=== PATIENT | female | born 1980 | race Caucasian/White ===

== ENCOUNTER → 2017-12-21 12:53 | Outpatient (CLI) | payer OTHER, SELFPAY ==
--- NOTE | 2017-12-21 13:00 | VDLE_ITS ---
Reason For Study: LEG SWELLING RIGHT LEFT CFV is compressible, spontaneous, phasic, CFV is compressible, spontaneous, phasic, competent and demonstrates normal competent, and demonstrates normal augmentation. augmentation. FV is compressible, spontaneous, phasic, FV is compressible, spontaneous, phasic, competent and demonstrates normal competent and demonstrates normal augmentation. augmentation. POP V is compressible, spontaneous, phasic, POP V is compressible, spontaneous, phasic, competent and demonstrates normal competent and demonstrates normal augmentation. augmentation. T/P Trunk is compressible. T/P Trunk is compressible. PTV is compressible. PTV is compressible. RT PerV is compressible. LT PerV is compressible. GSV and SSV are occluded s/p EVLA. SFJ is competent Procedure GSV is INCOMPETENT with reflux greater Exam performed in department. than .5 sec and diameter of .34 x .33 cm SSV is INCOMPETENT with reflux greater than .5 sec and diameter of .18 x .18 cm. Interpretation Summary Deep veins of the lower extremities are bilaterally patent and compressible segmentally. There is no evidence of deep vein thrombosis on either side. Valvular competence appears intact within the proximal deep venous systems bilaterally. The right great saphenous vein and small saphenous vein are occluded, consistent with a prior endothermal ablation procedure. The left sapheno-femoral junction is competent. The left great saphenous vein is patent and incompetent. The left small saphenous vein is patent and incompetent. Ordering Physician: ANABELLA NESBITT Referring Physician: Anabella Nesbitt Performed By: Justine Granado RVT
--- NOTE | 2017-12-28 20:14 | LEAS ---
Arterial Study - Arterial Study Arterial Study: This is a 37-year-old female with a history of smoking. Suspecting the presence of peripheral arterial occlusive disease based upon clinical assessment, the patient was brought to the noninvasive vascular laboratory at this time for the purpose of bilateral noninvasive lower extremity arterial assessment. Doppler signal assessment was used to evaluate the pulses at ankle level bilaterally. The posterior tibial and dorsalis pedis pulses were triphasic bilaterally. Segmental limb pressures were obtained at ankle level bilaterally. The right ankle pressure, as determined by posterior tibial pulse, was measured at 123 mmHg. The right ankle pressure, as determined by dorsalis pedis pulse, was measured at 132 mmHg. The left ankle pressure, as determined by posterior tibial pulse, was measured at 136 mmHg. The left ankle pressure, as determined by dorsalis pedis pulse, was measured at 118 mmHg. Pulse-volume recordings were obtained bilaterally and segmentally. Waveform amplitudes appeared to be satisfactory at all levels bilaterally, but for the left digital level, which was slightly diminished. Resting ankle-brachial indices were calculated bilaterally. The resting right ankle-brachial index was calculated to be 1.12. The resting left ankle-brachial index was calculated to be 1.15. Impression: Based upon the findings of this resting noninvasive lower extremity arterial study, there is no evidence of significant atherosclerotic peripheral arterial occlusive disease in the lower extremities bilaterally. Triphasic waveforms were noted in ankle level bilaterally. Resting ankle-brachial indices were bilaterally normal. In summary, this represents a normal resting noninvasive lower extremity arterial study bilaterally.
--- NOTE | 2017-12-28 20:17 | LEAS_ITS ---
Arterial Study - Arterial Study Arterial Study: This is a 37-year-old female with a history of smoking. Suspecting the presence of peripheral arterial occlusive disease based upon clinical assessment , the patient was brought to the noninvasive vascular laboratory at this time for the purpose of bilateral noninvasive lower extremity arterial assessment. Doppler signal assessment was used to evaluate the pulses at ankle level bilaterally. The posterior tibial and dorsalis pedis pulses were triphasic bilaterally. Segmental limb pressures were obtained at ankle level bilaterally. The right ankle pressure, as determined by posterior tibial pulse, was measured at 123 mmHg. The right ankle pressure, as determined by dorsalis pedis pulse, was measured at 132 mmHg. The left ankle pressure, as determined by posterior tibial pulse, was measured at 136 mmHg. The left ankle pressure, as determined by dorsalis pedis pulse, was measured at 118 mmHg. Pulse-volume recordings were obtained bilaterally and segmentally. Waveform amplitudes appeared to be satisfactory at all levels bilaterally, but for the left digital level, which was slightly diminished. Resting ankle-brachial indices were calculated bilaterally. The resting right ankle-brachial index was calculated to be 1.12. The resting left ankle- brachial index was calculated to be 1.15. Impression: Based upon the findings of this resting noninvasive lower extremity arterial study, there is no evidence of significant atherosclerotic peripheral arterial occlusive disease in the lower extremities bilaterally. Triphasic waveforms were noted in ankle level bilaterally. Resting ankle-brachial indices were bilaterally normal. In summary, this represents a normal resting noninvasive lower extremity arterial study bilaterally.
== END ==
PROVIDERS: Family Provider Nurse Practitioner; PCP Nurse Practitioner; Visit Provider Nurse Practitioner
DX: I73.9 Peripheral vascular disease, unspecified (principal); R60.0 Localized edema
CPT/HCPCS: 93923; 93970

== ENCOUNTER → 2018-02-06 16:55 | Outpatient (CLI) | payer OTHER, SELFPAY ==
--- NOTE | 2018-02-06 17:12 | MRI_ITS ---
STUDY: MRI LUMBAR SPINE WITHOUT CONTRAST REASON FOR EXAM: Female, 37 years old. LOW BACK PAIN, c/o bilat leg pain and numbness, pain inj last week. TECHNIQUE: Standardized fat and water weighted pulse sequences were obtained in the sagittal and axial planes. COMPARISON: None FINDINGS: T12-L1: Normal endplates. Normal disc height, hydration and morphology. Normal bilateral facet joints. Normal central canal and bilateral lateral recesses. Normal bilateral intervertebral neural foramina. There is straightening of the normal lumbar lordosis. There is no substantial scoliosis. Normal conus medullaris that terminates at the L1 L1-2: Normal endplates. Normal disc height, hydration and morphology. Normal bilateral facet joints. Normal central canal and bilateral lateral recesses. Normal bilateral intervertebral neural foramina. L2-3: Normal endplates. Normal disc height, hydration and morphology. Normal bilateral facet joints. Normal central canal and bilateral lateral recesses. Normal bilateral intervertebral neural foramina. L3-4: There is minimal disc space narrowing and endplate spondylosis. There is minimal disc bulging without significant central canal or foraminal stenosis. L4-5: There is minimal disc space narrowing and endplate spondylosis. There is a minimal disc bulge with left foraminal annular fissure without significant central canal or foraminal stenosis. L5-S1: There is minimal disc space narrowing and endplate spondylosis. There is minimal disc bulging without significant central canal or foraminal stenosis. Normal visualized sacral ala. Normal visualized paraspinous soft tissue structures. MRI/Spine Lumbar (Routine) IMPRESSION: L4/L5: Annular fissure. No central canal or foraminal stenosis. Electronically Signed: Silverio Norman MD at 15:24 EDT Tel , Service support ,
== END ==
PROVIDERS: Family Provider Nurse Practitioner; PCP Nurse Practitioner; Visit Provider Anesthesiology Pain Medicine
DX: M54.9 Dorsalgia, unspecified (principal); M79.606 Pain in leg, unspecified
CPT/HCPCS: 72148

== ENCOUNTER → 2018-05-30 15:21 | Outpatient (CLI) | payer OTHER, SELFPAY ==
--- NOTE | 2018-05-30 13:21 | RAD_ITS ---
STUDY: X-RAY - LUMBAR SPINE REASON FOR EXAM: Female, 38 years old. Lower back pain. TECHNIQUE: 4 view(s) of the lumbar spine were obtained. COMPARISON: MRI of the lumbar spine, February 06, 2018. FINDINGS: Normal lumbar lordosis. There is no substantial scoliosis. There is a normal alignment of the vertebrae. There is no change in alignment with flexion or extension. Normal vertebral bodies and endplates. Normal disc space heights. There is no evidence of acute fracture or loss of vertebral axial height. The soft tissue structures are unremarkable. RAD/L/S Spine Min 4 Views IMPRESSION: Normal x-ray examination of the lumbar spine. There is no evidence of instability. Electronically Signed: Ashok Auguste DO at 18:19 EDT Tel [phone], Service support ,
== END ==
PROVIDERS: Family Provider Nurse Practitioner; PCP Nurse Practitioner; Visit Provider Orthopaedic Surgery
DX: M54.5 Low back pain (principal)
CPT/HCPCS: 72110

== ENCOUNTER → 2018-06-22 12:44 | Outpatient (CLI) | payer OTHER, SELFPAY | PROVIDERS: Family Provider Nurse Practitioner; PCP Nurse Practitioner; Visit Provider Orthopaedic Surgery | DX: R29.898 Other symptoms and signs involving the musculoskeletal system (principal) | CPT/HCPCS: 72141 ==

== ENCOUNTER → 2019-10-02 22:33 | Outpatient (CLI) | payer BC, SELFPAY ==
[2019-10-02 22:56] LABS: Absolute Lymphocyte Count 1.62 X10^3/uL (0.83-4.51); Absolute Neutrophil Count 3.5 X10^3/uL (2.0-7.7); Eosinophil# 0.14 X10^3/uL; Eosinophils% 2.4 % (0-5); Hematocrit 32.3 % (37-47); Hemoglobin 10.3 g/dL (12.0-15.0); Lymphocyte # 1.62 X10^3/ul (4.0); Lymphocyte % 28.2 % (19-41); Mean Corp Hgb Conc 31.9 g/dL (32-36); Mean Corpuscular Hgb 28.5 pg (27.0-32.0); Mean Corpuscular Volume 89.2 fL (81-99); Mean Platelet Vol. 11.7 fl (6.2-12.0); Monocyte# 0.52 X10^3/uL; Monocyte% 9.1 % (0-10); NRBC Flagged by Analyzer 0 % (0-5); Neutrophil # 3.45 X10^3/uL (2.7-7.7); Neutrophil % 60.1 % (47-70); Platelet Count 282 K/mm3 (150-450); RBC Distribution Width CV 14.3 % (11.6-14.6); RBC Distribution Width SD 46.5 fl (35.1-43.9); Red Blood Count 3.62 M/mm3 (4.2-5.4); White Blood Count 5.7 K/mm3 (4.4-11.0)
[2019-10-02 23:03] LABS: ALB/GLOB Ratio 1.5 RATIO (0.9-2.4); AST(SGOT) 19 U/L (15-37); Alanine Aminotransfer ALT/SGPT 34 U/L (13-56); Albumin, Serum 4.4 g/dL (3.2-5.0); Alkaline Phosphatase 62 U/L (45-117); Anion Gap 5 (5-15); BUN 13 mg/dL (7-18); BUN/Creat Ratio 18.1 RATIO (10-20); Calcium,Total 8.8 mg/dL (8.5-10.1); Chloride 106 mmol/L (98-107); Creatinine, Serum 0.72 mg/dL (0.55-1.02); EST Glomerular Filtration Rate 95 mL/min (>60); Est Glom Filt Rate - Afr Amer 115 mL/min (>60); Globulin 2.9 g/dL (2.2-4.2); Glucose 83 mg/dL (74-106); Potassium 3.9 mmol/L (3.5-5.1); Protein, Total 7.3 g/dL (6.4-8.2); Sodium Level 139 mmol/L (136-145)
== END ==
PROVIDERS: Family Provider Nurse Practitioner; PCP Nurse Practitioner; Referring Provider Nurse Practitioner; Visit Provider Nurse Practitioner
DX: R60.0 Localized edema (principal)
CPT/HCPCS: 80053; 85025

== ENCOUNTER → 2020-03-17 | Outpatient (CLI) | payer BC, SELFPAY ==
[2020-03-17 16:26] VITALS: BMI 20.8
[2020-03-17 21:59] LABS: Absolute Lymphocyte Count 1.62 X10^3/uL (0.83-4.51); Absolute Neutrophil Count 3.4 X10^3/uL (2.0-7.7); Eosinophil# 0.16 X10^3/uL; Eosinophils% 2.8 % (0-5); Hematocrit 30.4 % (37-47); Hemoglobin 9.4 g/dL (12.0-15.0); Lymphocyte # 1.62 X10^3/ul (4.0); Mean Corp Hgb Conc 30.9 g/dL (32-36); Mean Corpuscular Hgb 25.1 pg (27.0-32.0); Mean Corpuscular Volume 81.1 fL (81-99); Monocyte# 0.63 X10^3/uL; Monocyte% 10.9 % (0-10); NRBC Flagged by Analyzer 0 % (0-5); Neutrophil # 3.37 X10^3/uL (2.7-7.7); Neutrophil % 58.1 % (47-70); POSITIVE MORPHOLOGY YES; Platelet Count 275 K/mm3 (150-450); RBC Distribution Width CV 15.9 % (11.6-14.6); Red Blood Count 3.75 M/mm3 (4.2-5.4); White Blood Count 5.8 K/mm3 (4.4-11.0)
[2020-03-17 22:23] LABS: Differential Indicated SCAN CRITERIA MET
[2020-03-17 22:24] LABS: Platelet Estimate ADEQUATE (ADEQ)
[2020-03-17 22:25] LABS: Anisocytosis RARE; Hypochromasia 1+; Microcytosis RARE; Ovalocyte RARE; Red Cell Morphology N CHROM NORMAL (NORM C&C)
[2020-03-17 22:27] LABS: ALB/GLOB Ratio 1.4 RATIO (0.9-2.4); AST(SGOT) 19 U/L (15-37); Alanine Aminotransfer ALT/SGPT 27 U/L (13-56); Albumin, Serum 4.4 g/dL (3.2-5.0); Alkaline Phosphatase 64 U/L (45-117); Anion Gap 9 (5-15); BUN 13 mg/dL (7-18); BUN/Creat Ratio 16.8 RATIO (10-20); Calcium,Total 9.3 mg/dL (8.5-10.1); Chloride 101 mmol/L (98-107); Creatinine, Serum 0.78 mg/dL (0.55-1.02); EST Glomerular Filtration Rate 87 mL/min (>60); Est Glom Filt Rate - Afr Amer 105 mL/min (>60); Globulin 3.2 g/dL (2.2-4.2); Glucose 85 mg/dL (74-106); Potassium 3.2 mmol/L (3.5-5.1); Protein, Total 7.6 g/dL (6.4-8.2); Sodium Level 138 mmol/L (136-145)
== END | disposition home or self-care (01) ==
PROVIDERS: Visit Provider Nurse Practitioner
DX: E87.6 Hypokalemia (principal); D51.9 Vitamin B12 deficiency anemia, unspecified
CPT/HCPCS: 80053; 85025

== ENCOUNTER → 2020-04-17 | Outpatient (CLI) | payer BC, SELFPAY ==
[2020-03-17 16:26] VITALS: BMI 20.8
--- NOTE | 2020-04-17 17:05 | EMB_PTH ---
PATIENT: ALECIA VELA LOC: [facility] U#:[id number] AGE/SX: 40/F ROOM: RE04/17/[address]: Dr. Indio Cheng MD : 1980 BED: DIS: 04/17/2020 SPEC #: [id number] RECD: 04/17/20 17:25 STATUS: STEVE ROSENDA #: [id number] HARVEY: 04/17/20 17:[address]: Indio Cheng DEPT: SURGICAL PATHOLOGY RECD BY: Jessy Guzman Tissues: Endometrium, NOS Procedures: Surgery Specimen Level IV HEADER OPERATION: Endometrial biopsy PRE-OP DIAGNOSIS: N92.0 TISSUE SUBMITTED: Endometrial biopsy MICROSCOPIC DIAGNOSIS Endometrial biopsy: Secretory endometrium. SJ:lexa 04/21/20 MICROSCOPIC DESCRIPTION Slides are reviewed. GROSS DESCRIPTION Received in fixative is one container labeled with the patient's name and designated EM biopsy. The specimen consists of multiple irregular fragments of busby-pink soft tissue that in aggregate measure 3 x 2.5 x 0.3 cm. The specimen is totally submitted in one cassette. / SJ:rg 04/18/20 TC:4 CPT: 58612
[2020-04-23 05:20] LABS: HPV Reflexed? NOT INDICATED
== END | disposition home or self-care (01) ==
PROVIDERS: Referring Provider Obstetrics & Gynecology; Visit Provider Obstetrics & Gynecology
DX: Z12.4 Encounter for screening for malignant neoplasm of cervix (principal)
CPT/HCPCS: 88175; 88305; G0145

== ENCOUNTER 2020-04-25 09:37 | Day surgery (SDC) | payer BC, SELFPAY ==
[2020-03-17 16:26] VITALS: BMI 20.8
[2020-04-23 14:29] LABS: Hemoglobin 8.8 g/dL (12.0-15.0); Mean Corp Hgb Conc 30.3 g/dL (32-36); Mean Corpuscular Hgb 24.5 pg (27.0-32.0); Mean Corpuscular Volume 80.8 fL (81-99); Mean Platelet Vol. 11.3 fl (6.2-12.0); Platelet Count 336 K/mm3 (150-450); RBC Distribution Width CV 16.5 % (11.6-14.6); RBC Distribution Width SD 48.4 fl (35.1-43.9); Red Blood Count 3.59 M/mm3 (4.2-5.4); White Blood Count 6.4 K/mm3 (4.4-11.0)
[2020-04-23 14:53] LABS: Prothrombin Time (Protime)PT. 12.8 SECONDS (11.7-14.9)
[2020-04-23 14:54] LABS: Partial Thromboplast Time 32.4 Seconds (24.1-36.2)
[2020-04-23 15:49] LABS: Internal QC Validated? YES +Cl - CLEAR BKGD; Pregnancy, Serum, hCG Quali. NEGATIVE Negative
[2020-04-25] VITALS (10 sets, daily range): BP systolic 107–126; BP diastolic 68–84; PULSE 64–73; RESP 15–16; TEMP 36.6–37.1; O2SAT 96–100; BMI 20.2
--- NOTE | 2020-04-25 08:20 | HP.PCM_ITS ---
History and Physical Date of Admission: 04/25/20 Surgical History and Physical Sierra Gonzales, a 40 year old female 3 0 0 1 3, presents for HTA, Hysteroscopy and D and C on April 25, 2020 at 11:30. -- Blood Loss Anemia; Dysmenorrhea; Menorrhagia -- Sierra is a 39 yr old here as a new pt here for evaluation Dysmenorrhea, Menorrhagia. Heavy menses which began years ago. Sierra claims it started gradually It occurs with menses. It is located in the vagina. Sierra characterizes the quality annoying and no relief in sight. Severity is severe and worsening; Severity is intolerable and worsening; Associated signs and symptoms are cramping. Additional comments are: hgb 9.5 a few weeks ago after a very heavy menses a few weeks earlier; has been on iron for several years; on med for claudication due to legs being tired since varicose vein stripping; u/s without fibroids.; Additional comments are: PCP checks TFTs. MEDICATIONS HISTORY: Patient is also takin. cilostazol 100 mg tablet, ONe tablet by mouth once daily 2. cyanocobalamin (vit B-12) 1,000 mcg/mL injection solution, 2 x weekly 3. fexofenadine-pseudoephedrine ER 180 mg-240 mg tablet,ext.release 24 hr, ONe tablet by mouth daily 4. hydrochlorothiazide 25 mg tablet, One tablet by mouth daily 5. meloxicam 15 mg tablet, One tablet daily 6. Protonix 40 mg tablet,delayed release, One tablet by mouth once daily 7. tramadol 50 mg tablet, One tabley by mouth as needed for pain ALLERGIES: No Known Allergies Infections - Chicken pox and Pneumonia Illnesses - Hypertension, Back pain, Hx Blood clots and Degenerative / Compression Neck + Low Back Accidents - None Hospitalizations - Childbirth and see surgery Review of Systems: GENERAL - Denies fever, or chills SKIN - Denies skin changes EYES - Denies visual changes EARS - Denies difficulty hearing NOSE - Denies nasal congestion or bleeding MOUTH - Denies sore throat or difficulty swallowing NECK - Denies pain or swelling RESPIRATORY - Denies shortness of breath or wheezing CARDIOVASCULAR - Denies palpitations or chest pain GASTROINTESTINAL - Denies nausea, vomiting, diarrhea, constipation GENITOURINARY - Denies dysuria, frequency of urination, incontinence of urine MUSCULOSKELETAL - Denies joint or muscle pain NEUROLOGICAL - Denies localized numbness or weakness PSYCHIATRIC - Denies depression or anxiety ENDOCRINE - Denies heat or cold intolerance, weight loss or gain HEMATO-IMMUNOLOGIC - Denies excessive bleeding with cuts SOCIAL HISTORY: Alcohol Use - drinks occasionally Smoking - used to smoke but quit Diet - Gluten Free Lifestyle - moderate stress lifestyle and Exercise - active Seat Belt Use - always Employer - Home Illicit Drug Use - denies use of street drugs Sexual Activity - Residence - Lives w/ Spouse-Sig Other Name - Jayden Gonzales Spouse-Sig 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 Vein Stripping R leg, 2014 2. 07/16/2002 3. Right Inguinal Herniorrhaphy 2001 PHYSICAL EXAM BP- 118/60 Sitting, Right arm, regular cuff Temp- 98.1 Taken Orally Weight- 123.49786 lbs Height- 65 inch BMI:20.58 CONSTITUTIONAL - NAD, well nourished, and well developed SKIN - No rash, lesions, or ulcers HEENT - Normocephalic, PERRLA, EOMI NECK - No nodes, no nuchal rigidity and thyroid normal size and texture LYMPH NODES - Palpation of lymph nodes in neck and groins within normal limits LUNGS - CTA x2 without wheezes, crackles or rales CARDIAC - Regular rate and rhythm without rubs, murmurs, or gallops ABDOMEN - Without hepatosplenomegaly, distention, masses, rebound, or guarding; normal bowel sounds; no hernias EXTREMITIES - No edema or calf tenderness NEUROLOGICAL - Cranial nerves II-XII grossly intact PSYCHIATRIC - A and O to time, place, person, mood and affect External Genital Vagina - non-tender without lesions Urethra/Urethral Meatus - non-tender Bladder - non-tender Vagina - vaginal schmitt are pink and moist without loss of rugae and no evidence of atropy Cervix - without cervical motion tenderness and has normal size and features without evident lesions Uterus - enlarged uterus 10 wks, wt 175-275 g Adnexa - clear without masses or tenderness ASSESSMENT/PLAN: 1. Dysmenorrhea, Iron Deficiency Anemia Secondary To Blood Loss (chronic) and Premenopause Menorrhagia Pelvic u/s with moderately enlarged uterus and thickened EM but no fibroids; EMBx ok. Discussed EM ablation and desires to proceed with HTA, D and C and H/S. Discussed RBAs and all questions answered. Procedure Criteria Procedure Type: Elective Procedure Essential: No COVID Risk Discussion: The surgeon/proceduralist and patient have discussed in detail the risk of exposure to and/or potential harm posed by the COVID-19 virus with having a surgery/procedure at this time versus the risk of delaying the surgery/procedure. It is not possible to know either the risk of delaying the surgery or procedure or chance of getting an infection with perfect accuracy, but a joint decision was made between the patient and the surgeon/proceduralist to proceed at this time with the scheduled surgery/procedure as indicated on the consent form.
[2020-04-25] MEDS: Lactated Ringers 1,000 ML 100 ML IV ×2 (10:10→13:46)
[2020-04-25 10:11] LABS: Internal QC Validated? YES +Cl - CLEAR BKGD; Pregnancy, Urine Negative Negative
--- NOTE | 2020-04-25 11:30 | EMB_PTH ---
PATIENT: ALECIA VELA [place] [facility] [place][id number] AGE/SX: 40/F ROOM: RE04/25/[address]: Dr. Indio Cheng MD : 1980 BED: DIS: 04/25/2020 SPEC #: [id number] RECD: 04/25/20 13:40 STATUS: STEVE ROSENDA #: [id number] HARVEY: 04/25/20 11:[address]: Indio Cheng DEPT: SURGICAL PATHOLOGY RECD BY: Jessy Guzman ENTERED: 04/28/20 09:18 SP TYPE: ENDOM BX/C OTHR DR: Isabel Salazar, APPLICATION DEVELOPMENT PROJECT MANAGER-C Tissues: Endometrium, NOS Procedures: Surgery Specimen Level IV HEADER OPERATION: Hysteroscopy, D & C hydroablation PRE-OP DIAGNOSIS: Dysmenorrhea TISSUE SUBMITTED: Endometrial curettings MICROSCOPIC DIAGNOSIS Endometrium, curettings: Dyssynchronous endometrium with stromal and focal glandular breakdown. AM:lexa 04/29/20 MICROSCOPIC DESCRIPTION Slides are reviewed. GROSS DESCRIPTION Received in fixative is one container labeled with the patient's name and designated endometrial curettings. The specimen consists of multiple fragments of pink hemorrhagic soft tissue that in aggregate measure 5 x 3 x 0.3 cm. The entire specimen is submitted in two cassettes. / SJ:lexa 04/28/20 TC:5 CPT: 62852
--- NOTE | 2020-04-25 11:49 | OP.PCM_ITS ---
Report of Operation Date of Procedure: 04/25/20 Pre-Operative Diagnosis: Menorrhagia, Dysmenorrhea, Blood Loss Anemia Post-Operative Diagnosis: Menorrhagia, Dysmenorrhea, Blood Loss Anemia Surgery/Procedure Performed:: Diagnostic Hysteroscopy, D&C, Hydrothermal Ablation Description of Surgical Findings:: 10 cm endometrial cavity without polyps or fibroids present. Cervix which protrudes to within 2 cm of the vaginal introitus with tenaculum pulled down which would make laparoscopic-assisted vaginal hysterectomy feasible. Type of Anesthesia:: General - LMA Anesthesiologist: Hardik Jaime Specimen's removed: Endometrial curettings Estimated Blood Loss (mL): Minimal Fluids Replaced: Crystalloid Description of Procedure: Surgeon: Indio Cheng MD, FACOG Indication: This is a 40 year old patient who has been having problems with extremely heavy menses. Conservative measures have not been helpful. Endometrial sampling was benign and pelvic ultrasound showed that ablation may be helpful. Pt has been counseled regarding the risks, benefits and alternatives of this procedure and all questions answered. She understands that only about half of patients will have amenorrhea after this procedure. Procedure: Patient taken to the operating room where after induction of general anesthesia the patient was prepped and draped in the usual sterile fashion. Bladder was drained of urine with a catheter. Anterior cervix grasped and cervix was dilated to about 17 [place] size. Hysteroscopic hydrothermal ablation (HTA) unit was place in the cervix and the above findings were noted. HTA unit was removed and the uterus was gently curretted removing all contents. An HTA ablation cycle was then carried out at about 90 degrees Centigrade for 10 minutes with virtually no fluid loss during the procedure. After an appropriate cool down the HTA unit was removed with minimal bleeding noted. The patient tolerated the procedure well and was taken to the recovery room in satisfactory condition. Sponge, instruments and needle counts were all correct. There were no apparent complications of the surgery. Cefotan 2 gms IV was given prior to the procedure. Estimated Blood Loss: Minimal Specimen to Pathology: Endometrial Curettings
--- NOTE | 2020-04-25 11:52 | PCM.DC.D&C ---
Discharge Diet: No Restrictions Discharge Activity: Return to Normal Activity, May Shower, May Take a Tub Bath May resume sexual activity in: 3 weeks Call your doctor if you observe: Fever of 101 or Higher, Inability to urinate, Inability to have a bowel movement, Using more than one pad per hour Allergies/Adverse Reactions: Allergies No Known Allergies Allergy (Verified 04/25/20 09:55) Medications to take at Discharge fexofenadine-pseudoephedrine ER 180 mg-240 mg tablet,ext.release 24 hr 1 tab PO QAM #30 tab 01/05/19 cilostazol 100 mg tablet 100 mg PO BID #60 tab 05/31/19 pantoprazole 40 mg tablet,delayed release 40 mg PO DAILY #30 tab 10/02/19 syringe with needle, safety 3 mL 23 gauge x 1 See Dose Instructions .ROUTE .MEDSUPPLY #100 ea 10/02/19 cyanocobalamin (vitamin B-12) 1,000 mcg/mL injection solution 1,000 mcg SC .biweekly 30 Days #8 ml 03/17/20 meloxicam 15 mg tablet 15 mg PO QDAY #30 tab 03/17/20 tramadol 50 mg tablet 100 mg PO Q6H PRN #240 tab 03/17/20 Hydrochlorothiazide [Hctz] 25 mg PO DAILY PRN 04/23/20 Oxycodone [Oxyir] 5 mg PO Q6H PRN PRN 7 Days #7 tablet 04/25/20 The following prescriptions were given: Oxycodone [Oxyir] 5 mg PO Q6H PRN PRN 7 Days #7 tablet PRN Reason: Pain Score 6-10/10 Transmission Status: Sent to [facility] Primary Care Physician: Isabel Salazar NP-C [Primary Care Provider] - Test Results: Test results from this visit will be discussed in further detail at your follow-up appointment, if applicable. Please Follow Up With: Indio Cheng MD When: 3 to 4 weeks
[2020-04-25] MEDS: oxyCODONE 5 MG Tablet PO (14:55)
== END 2020-04-25 15:10 | disposition home or self-care (01) ==
LOC: SDC 09:38 → AC 09:39
PROVIDERS: Anesthesiology; PCP Nurse Practitioner; Referring Provider Obstetrics & Gynecology; Visit Provider Obstetrics & Gynecology
PROC: 0U5B8ZZ Destruction of Endometrium, Via Natural or Artificial Opening Endoscopic (ICD-10-PCS; CPT 58563; principal; 2020-04-25 11:15)
DX: N92.4 Excessive bleeding in the premenopausal period (principal); N94.6 Dysmenorrhea, unspecified; D50.0 Iron deficiency anemia secondary to blood loss (chronic); I10 Essential (primary) hypertension; K21.9 Gastro-esophageal reflux disease without esophagitis; Z87.891 Personal history of nicotine dependence; Z11.59 Encounter for screening for other viral diseases
CPT/HCPCS: 58563; 36415; 81025; 84703; 85027; 85610; 85730; 86850; 86900; 86901; 87635; 88305; G2023; J7120; J2405; U0003

== ENCOUNTER → 2020-08-29 21:43 | Outpatient (CLI) | payer BC, SELFPAY ==
[2020-08-29 15:04] VITALS: BMI 21.3
[2020-08-29 21:52] LABS: Absolute Lymphocyte Count 1.43 X10^3/uL (0.83-4.51); Absolute Neutrophil Count 3.5 X10^3/uL (2.0-7.7); Eosinophil# 0.23 X10^3/uL; Hematocrit 30.8 % (37-47); Hemoglobin 9.5 g/dL (12.0-15.0); Lymphocyte # 1.43 X10^3/ul (4.0); Lymphocyte % 24.7 % (19-41); Mean Corp Hgb Conc 30.8 g/dL (32-36); Mean Corpuscular Hgb 23.8 pg (27.0-32.0); Mean Corpuscular Volume 77.2 fL (81-99); Mean Platelet Vol. 11.2 fl (6.2-12.0); Monocyte% 10.4 % (0-10); NRBC Flagged by Analyzer 0 % (0-5); Neutrophil # 3.51 X10^3/uL (2.7-7.7); Neutrophil % 60.7 % (47-70); Platelet Count 330 K/mm3 (150-450); RBC Distribution Width CV 18.3 % (11.6-14.6); RBC Distribution Width SD 51.3 fl (35.1-43.9); Red Blood Count 3.99 M/mm3 (4.2-5.4); White Blood Count 5.8 K/mm3 (4.4-11.0)
[2020-08-29 22:20] LABS: ALB/GLOB Ratio 1.2 RATIO (0.9-2.4); AST(SGOT) 17 U/L (15-37); Alanine Aminotransfer ALT/SGPT 23 U/L (13-56); Alkaline Phosphatase 84 U/L (45-117); Amylase 122 U/L (25-115); Anion Gap 7 (5-15); BUN 24 mg/dL (7-18); BUN/Creat Ratio 32.2 RATIO (10-20); Calcium,Total 8.8 mg/dL (8.5-10.1); Chloride 105 mmol/L (98-107); Cholesterol 312 mg/dL (200); Creatinine, Serum 0.75 mg/dL (0.55-1.02); EST Glomerular Filtration Rate 91 mL/min (>60); Est Glom Filt Rate - Afr Amer 110 mL/min (>60); Globulin 3.4 g/dL (2.2-4.2); Glucose 84 mg/dL (74-106); High Density Lipoprotein 84 mg/dL; Potassium 3.1 mmol/L (3.5-5.1); Protein, Total 7.4 g/dL (6.4-8.2); Sodium Level 138 mmol/L (136-145); Thyroid Stim Hormone (TSH) 2.02 uIU/mL (0.358-3.74); Triglycerides 76 mg/dL; Very Low Density Lipoprotein 15 mg/dL (5-40)
== END ==
PROVIDERS: PCP Nurse Practitioner; Visit Provider Nurse Practitioner
DX: R53.83 Other fatigue (principal); R60.0 Localized edema; R10.9 Unspecified abdominal pain; E78.00 Pure hypercholesterolemia, unspecified
CPT/HCPCS: 80053; 80061; 82150; 84443; 85025

== ENCOUNTER 2020-09-08 07:54 | Day surgery (SDC) | payer BC, SELFPAY ==
[2020-08-29 15:04] VITALS: BMI 21.3
[2020-09-04 11:48] LABS: Hemoglobin 10.1 g/dL (12.0-15.0); Mean Corp Hgb Conc 30.6 g/dL (32-36); Mean Corpuscular Hgb 24.2 pg (27.0-32.0); Mean Corpuscular Volume 79.1 fL (81-99); Mean Platelet Vol. 10.7 fl (6.2-12.0); Platelet Count 414 K/mm3 (150-450); RBC Distribution Width SD 54.4 fl (35.1-43.9); Red Blood Count 4.17 M/mm3 (4.2-5.4); White Blood Count 6.1 K/mm3 (4.4-11.0)
[2020-09-04 11:58] LABS: Internal QC Validated? YES +Cl - CLEAR BKGD; Pregnancy, Serum, hCG Quali. NEGATIVE Negative
[2020-09-04 12:01] LABS: International Normalized Ratio 0.9; Partial Thromboplast Time 32.1 Seconds (24.1-36.2)
[2020-09-04 12:08] LABS: Anion Gap 6 (5-15); Chloride 102 mmol/L (98-107); Creatinine, Serum 0.88 mg/dL (0.55-1.02); EST Glomerular Filtration Rate 75 mL/min (>60); Est Glom Filt Rate - Afr Amer 91 mL/min (>60); Potassium 3.8 mmol/L (3.5-5.1); Sodium Level 140 mmol/L (136-145)
--- NOTE | 2020-09-07 17:37 | HP.PCM_ITS ---
History and Physical Date of Admission: 09/08/20 Surgical History and Physical Sierra Gonzales, a 40 year old female 3 0 0 1 3, presents for RAVH/BS on September 08, 2020 at 10:30. -- Blood Loss Anemia; Dysmenorrhea; Menorrhagia s/p EM ablation -- heavy menses which began years ago. Sierra claims it started gradually It occurs with menses. It is located in the vagina. Sierra characterizes the quality annoying and no relief in sight. Severity is severe and worsening; Severity is intolerable and worsening; Associated signs and symptoms are cramping. Additional comments are: hgb 9.5 a few weeks ago after a very heavy menses a few weeks earlier; has been on iron for several years; on med for claudication due to legs being tired since varicose vein stripping; u/s without fibroids. Additional comments are: PCP checks TFTs. Hx of ablation and C- section. MEDICATIONS HISTORY: Patient is also takin. cilostazol 100 mg tablet, ONe tablet by mouth once daily 2. cyanocobalamin (vit B-12) 1,000 mcg/mL injection solution, 2 x weekly 3. fexofenadine-pseudoephedrine ER 180 mg-240 mg tablet,ext.release 24 hr, ONe tablet by mouth daily 4. hydrochlorothiazide 25 mg tablet, One tablet by mouth daily 5. meloxicam 15 mg tablet, One tablet daily 6. Protonix 40 mg tablet,delayed release, One tablet by mouth once daily 7. tramadol 50 mg tablet, One tabley by mouth as needed for pain ALLERGIES: No Known Allergies Infections - Chicken pox and Pneumonia Illnesses - Hypertension, Back pain, Hx Blood clots and Degenerative / Compression Neck + Low Back Accidents - None Hospitalizations - Childbirth and see surgery Review of Systems: GENERAL - Denies fever, or chills SKIN - Denies skin changes EYES - Denies visual changes EARS - Denies difficulty hearing NOSE - Denies nasal congestion or bleeding MOUTH - Denies sore throat or difficulty swallowing NECK - Denies pain or swelling RESPIRATORY - Denies shortness of breath or wheezing CARDIOVASCULAR - Denies palpitations or chest pain GASTROINTESTINAL - Denies nausea, vomiting, diarrhea, constipation GENITOURINARY - Denies dysuria, frequency of urination, incontinence of urine MUSCULOSKELETAL - Denies joint or muscle pain NEUROLOGICAL - Denies localized numbness or weakness PSYCHIATRIC - Denies depression or anxiety ENDOCRINE - Denies heat or cold intolerance, weight loss or gain HEMATO-IMMUNOLOGIC - Denies excesive bleeding with cuts SOCIAL HISTORY: Alcohol Use - drinks occasionally Smoking - used to smoke but quit Diet - Gluten Free Lifestyle - moderate stress lifestyle and Exercise - active Seat Belt Use - always Employer - Home Illicit Drug Use - denies use of street drugs Sexual Activity - Residence - Lives w/ Spouse-Sig Other Name - Jayden Gonzales Spouse-Sig Other 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 Vein Stripping R leg, 2014 2. 07/16/2002 3. Right Inguinal Herniorrhaphy 2001 ; - 4. 04/25/2020 dx hysteroscopy, D and C, HTA ; Indio Cheng M.D. PHYSICAL EXAM BP- 92/68 Sitting, Right arm, regular cuff Temp- 98.6 Weight- 132.24698 lbs Height- 65.00 inch BMI:22.11 CONSTITUTIONAL - NAD, well nourished, and well developed SKIN - No rash, lesions, or ulcers HEENT - Normocephalic, PERRLA, EOMI NECK - No nodes, no nuchal rigidity and thyroid normal size and texture LYMPH NODES - Palpation of lymph nodes in neck and groins within normal limits LUNGS - CTA x2 without wheezes, crackles or rales CARDIAC - Regular rate and rhythm without rubs, murmurs, or gallops ABDOMEN - Without hepatosplenomegaly, distention, masses, rebound, or guarding; normal bowel sounds; no hernias EXTREMITIES - No edema or calf tenderness NEUROLOGICAL - Cranial nerves II-XII grossly intact PSYCHIATRIC - A and O to time, place, person, mood and affect External Genitial Vagina - non-tender without lesions Urethra/Urethral Meatus - non-tender Bladder - non-tender Vagina - vaginal schmitt are pink and moist without loss of rugae and no evidence of atropy Cervix - without cervical motion tenderness and has normal size and features without evident lesions Uterus - enlarged uterus 10 wks, wt 175-275 g Adnexa - clear without masses or tenderness ASSESSMENT/PLAN: 1. Dysmenorrhea, Iron Deficiency Anemia Secondary To Blood Loss (chronic) and Premenopause Menorrhagia Pelvic u/s with moderately enlarged uterus and thickened EM bu no fibroids. Still bleeding after ablation earlier this year. Desires proceeding with hysterectomy. Plan RAVH/BS. Discussed RBAs and all questions answered.
[2020-09-08] VITALS (11 sets, daily range): BP systolic 99–111; BP diastolic 50–75; PULSE 67–84; RESP 16–18; TEMP 36.3–37.7; O2SAT 99–100; BMI 21.3
[2020-09-08 09:34] LABS: Internal QC Validated? YES +Cl - CLEAR BKGD; Pregnancy, Urine Negative Negative
--- NOTE | 2020-09-08 10:00 | HYST_PTH ---
PATIENT: ALECIA VELA LOC: [facility] U#:[id number] AGE/SX: 40/F ROOM: RE09/08/[address]: Dr. Indio Cheng MD : 1980 BED: DIS: 09/09/2020 SPEC #: [id number] RECD: 09/08/20 15:13 STATUS: STEVE ROSENDA #: [id number] HARVEY: 09/08/20 10:[address]: Indio Cheng DEPT: SURGICAL PATHOLOGY RECD BY: Jessy Guzman ENTERED: 09/09/20 08:50 SP TYPE: HYSTERECT OTHR DR: Isabel Salazar, SYNTHETIC CLOTH BINDING CUTTER-C Tissues: Uterus, NOS Procedures: Surgery Specimen Level V HEADER OPERATION: Lap robotic hysterectomy, bilateral salpingectomy PRE-OP DIAGNOSIS: Dysmenorrhea TISSUE SUBMITTED: Uterus and bilateral fallopian tubes MICROSCOPIC DIAGNOSIS Uterus and bilateral fallopian tubes, hysterectomy and bilateral salpingectomy: Cervix - chronic cystic cervicitis and squamous metaplasia and minimal acute inflammation. Endometrium - extensive fibrosis consistent with previous endometrial ablation.. Myometrium - no pathologic diagnosis. Bilateral fallopian tubes - no pathologic diagnosis. Right paratubal cysts. SJ:rg 09/10/20 COMMENT Please make reference to previous specimens ([id number]) endometrial biopsy with diagnosis of secretory endometrium and ([id number]) endometrium, curettings with diagnosis of dyssynchronous endometrium with stromal and focal glandular breakdown. MICROSCOPIC DESCRIPTION Slides are reviewed. GROSS DESCRIPTION Received in fixative is one container labeled with the patient's name and designated uterus, bilateral fallopian tubes. The specimen consists of a hysterectomy specimen consisting of uterus with attached bilateral fallopian tubes. The uterus with cervix weighs 107 gm and measures 9.5 x 6 x 5 cm. The anterior serosal surface show ragged surfaces. The ectocervical mucosa is unremarkable. The external os is slit-like in contour. The endocervical canal measures 3.5 cm in length and the endocervical mucosa is busby, glistening and unremarkable. The triangular endometrial cavity measures 5 cm in length and up to 2 cm in width. The endometrium is congested and hemorrhagic without any mass lesion and measures 0.1 cm in thickness. Sections of the uterine wall do not reveal any mass lesion and it measures up to 2 cm in thickness. The right fallopian tube measures 8.5 cm in length and 0.7 cm in diameter. The fimbrial end is identified. Two paratubal cysts are noted measuring 0.5 and 0.7 cm in greatest dimension. The paratubal cysts are filled with clear fluid. The fallopian tubes do not reveal any mass lesion. Sections reveal unremarkable cut surfaces. The left fallopian tube is similar appearance to right and measures 9 cm in length and 0.7 cm in diameter. Flarer sections are submitted in eight cassettes as follows: 1 - anterior cervix, 2 - posterior cervix, 3 & 4 - anterior uterine wall, 5 & 6 - posterior uterine wall, 7 - right fallopian and paratubal cysts, 8 - left fallopian tube. / SJ:rg 09/09/20 TC:5 CPT: 04825
[2020-09-08] MEDS: Cefotetan 2 GM in 0.9% NS 100 ML IV (10:10)
--- NOTE | 2020-09-08 10:22 | OP.PCM_ITS ---
Report of Operation Date of Procedure: 09/08/20 Pre-Operative Diagnosis: Menorrhagia, Blood Loss Anemia, Dysmenorrhea Status Post Endometrial Ablation Post-Operative Diagnosis: Menorrhagia, Blood Loss Anemia, Dysmenorrhea Status Post Endometrial Ablation, Adhesions Surgery/Procedure Performed:: Robotic Assisted Vaginal Hysterectomy and Bilateral Salpingectomy, Lysis of Adhesions Description of Surgical Findings:: 10 cm uterus with normal-appearing fallopian tubes and ovaries. Dense band adhesion between uterus and anterior abdominal wall from prior section. entry level marketing assistant: Chago Gill Type of Anesthesia:: General - Endotracheal Anesthesiologist: Omega Hernandez Specimen's removed: Uterus and bilateral fallopian tubes Drains: Gloria to straight drain Estimated Blood Loss (mL): Minimal Fluids Replaced: Crystalloid Description of Procedure: Surgeon: Indio Cheng MD, FACOG Indication: This is a 40 year old patient who has been having problems with menorrhagia, blood loss anemia, dysmenorrhea status post endometrial ablation. Conservative measures have not been helpful. The patient has been counseled regarding the risks, benefits and alternatives of this procedure including the possibility of bleeding, infection, and injury to surrounding structures such as bowel bladder and all questions were answered. She understands that if BSO is needed that she will need to be on HRT for an indefinite period of time. Procedure: Pt taken to the operating room where, after induction of general anesthesia, the patient was prepped and draped in the usual sterile fashion and placed on a non-slip Huggy-u-vac device. Trendelenburg test was satisfactory. Bladder was drained of urine with a Gloria catheter which was left in place. Anterior cervix grasped and cervix was dilated to about 3-4 mm. Uterus sounded to 8 cms and some dark blood was noted when dilating cervix coming from the uterine cavity . 0-Vicryl suture was placed at the 3:00 and 9:00 position of the cervix. A medium Advincula Biochemistry Technologist Uterine Manipulator was then placed in the uterus and attention was turned to the laparoscopic portion of the procedure. Ropivocaine 0.5% was injected approximately 2-3 cm superior to the umbilicus and an 8 mm robotic camera port was introduced directly with intraperitoneal placement confirmed with CO2 insufflation. 8 mm robotic side ports were introduced under direct visualization approximately 10 cm lateral and 2 cm inferior to the umbilical port. A 5 mm left upper quadrant port was introduced and airseal insufflation with CO2 was started. The above findings were noted. Robot was docked without difficulty and attention turned to the robotic portion of the procedure. Approximately 30 cc of Ropivicaine was used. Bilateral mesosalpinx were ligated with 35 lopez bipolar coagulation to the leve l of the round ligament. The posterior aspect of the cervix was identified and then opened for about 1 cm using 25 watt monopolar cautery. After using sharp and monopolar cautery to divide the large banded adhesion on the anterior portion of the uterus, the bladder flap was opened and divided to the level of the round ligaments using monopolar cautery. Progressive bites were then ligated on each side of the cervix with 35 lopez bipolar cautery to the uterine arteries. The anterior vaginal mucosa was entered and cervix circumscribed with monopolar cautery. Uterus and attached tubes were removed through the vagina. Vaginal cuff was closed first with 0-Vicryl Gela stitches placed at each angle followed by closure of the mid-cuff with 0-Monocryl V-lock suture in two layers. Pelvis was copiously irrigated with saline and the right and left ureter was noted to peristalse. Robot was undocked and trocars were removed with as much gas as possible. Incisions were closed with 4-0 Monocryl subcuticular sutures and incisions covered with steri-strips. The patient tolerated the procedure well and was taken to the recovery room in satisfactory condition. Sponge, instruments and needle counts were all correct. There were no apparent complications of the surgery. Cefotan 2 gms IV was given prior to the procedure. Grafts/Implants Used: None - Complications None - Admit VTE Documentation VTE Present on Admission: Yes VTE Mechan Device Prophylaxis: SCD's VTE Pharm Prophylaxis ordered?: Yes
--- NOTE | 2020-09-08 10:29 | PCM.DC.VHY ---
Discharge Diet: No Restrictions Discharge Activity: Return to Normal Activity, May Not Drive - while taking narcotic pain medications., May Shower, May Take a Tub Bath May resume sexual activity in: 6-8 weeks Call your doctor if your incision/area has: Continuous Slow Oozing, Sudden Increased Bleeding, Increased Pain/ Swelling, Increased Redness, Foul Smelling Discharge Call your doctor if you observe: Fever of 101 or Higher, Inability to urinate, Inability to have a bowel movement, Using more than one pad per hour Allergies/Adverse Reactions: Allergies No Known Allergies Allergy (Verified 09/08/20 09:13) Medications to take at Discharge fexofenadine-pseudoephedrine ER 180 mg-240 mg tablet,ext.release 24 hr 1 tab PO QAM #30 tab 01/05/19 meloxicam 15 mg tablet 15 mg PO QDAY #30 tab 03/17/20 cilostazol 100 mg tablet 100 mg PO BID #60 tab 08/29/20 cyanocobalamin (vitamin B-12) 1,000 mcg/mL injection solution 1,000 mcg SC .biweekly 30 Days #8 ml 08/29/20 hydrochlorothiazide 25 mg tablet 25 mg PO DAILY PRN #30 tab 08/29/20 pantoprazole 40 mg tablet,delayed release 40 mg PO DAILY #30 tab 08/29/20 syringe with needle, safety 3 mL 23 gauge x 1 See Dose Instructions .ROUTE .MEDSUPPLY #100 ea 08/29/20 tramadol 50 mg tablet 100 mg PO Q6H PRN #240 tab 08/29/20 potassium chloride 10 mEq capsule,extended release 10 meq PO DAILY #90 cap 09/01/20 Docusate Sodium [Colace] 100 mg PO BID PRN PRN #60 cap 09/08/20 Oxycodone [Oxyir] 5 mg PO Q6H PRN PRN 7 Days #10 tablet 09/08/20 The following prescriptions were given: Docusate Sodium [Colace] 100 mg PO BID PRN PRN #60 cap PRN Reason: Constipation Transmission Status: Pending to [facility] Oxycodone [Oxyir] 5 mg PO Q6H PRN PRN 7 Days #10 tablet PRN Reason: Pain Score 6-10 Transmission Status: Sent to [facility] Primary Care Physician: Salazar,Isabel WATER SOFTENER SERVICER AND INSTALLER, WATER SOFTENER SERVICER AND INSTALLER-C [Primary Care Provider] - Test Results: Test results from this visit will be discussed in further detail at your follow-up appointment, if applicable. Please Follow Up With: Indio Cheng MD When: 2-3 weeks
[2020-09-08] MEDS: Ropivacaine 0.5% 30 ML Vial (10:40)
[2020-09-08] MEDS: HYDROmorphone 0.5 MG/0.5 ML SYRINGE IV ×2 (15:32→21:36)
[2020-09-08] MEDS: Dextrose 5%-Lactated Ringers 1,000 ML 150 ML IV ×2 (15:33→21:41)
[2020-09-08] MEDS: oxyCODONE 5 MG Tablet PO ×2 (17:52→23:59)
[2020-09-08] MEDS: 0.9% Saline Lock 10 ML Syringe IV (18:35)
[2020-09-08] MEDS: Ketorolac 30 MG/ML Syringe IV ×2 (18:35→23:57)
[2020-09-08] MEDS: Enoxaparin 30 MG/0.3 ML Syringe SC (18:40)
[2020-09-09 02:50] VITALS: BP 100/49; PULSE 73; RESP 18; TEMP 37.2; O2SAT 96
[2020-09-09 05:55] LABS: Hematocrit 26.9 % (37-47); Hemoglobin 8.3 g/dL (12.0-15.0); Mean Corp Hgb Conc 30.9 g/dL (32-36); Mean Corpuscular Hgb 24.2 pg (27.0-32.0); Mean Corpuscular Volume 78.4 fL (81-99); Mean Platelet Vol. 10.9 fl (6.2-12.0); Platelet Count 286 K/mm3 (150-450); RBC Distribution Width CV 18.8 % (11.6-14.6); RBC Distribution Width SD 54.4 fl (35.1-43.9); Red Blood Count 3.43 M/mm3 (4.2-5.4); White Blood Count 11.9 K/mm3 (4.4-11.0)
[2020-09-09] MEDS: Ketorolac 30 MG/ML Syringe IV (05:58)
[2020-09-09] MEDS: oxyCODONE 5 MG Tablet PO (06:08)
[2020-09-09 06:21] LABS: Creatinine, Serum 0.88 mg/dL (0.55-1.02); EST Glomerular Filtration Rate 74 mL/min (>60); Est Glom Filt Rate - Afr Amer 90 mL/min (>60); Estimated Creatinine Clearance 77.96 ml/min
--- NOTE | 2020-09-09 06:57 | PCM.PN.OB ---
Subjective: Patient without complaints. Tolerating diet well. Minimal vaginal bleeding. Positive flatus. Able to void on own with catheter out. Ready to go home. Objective: Wounds are clean, dry, intact. Good urine output. Hemoglobin and creatinine okay. - Physical Exam Vitals/I&O's: Vital Signs Temp Pulse Resp BP Pulse Ox 98.9 F 73 18 100/49 L 96 09/09/20 02:50 09/09/20 02:50 09/09/20 02:50 09/09/20 02:50 09/09/20 02:50 Oxygen Delivery Method Room Air Weight: 132 lb 4.438 oz Body Mass Index (BMI) 21.3 Intake and Output for Last 24 Hours 09/07/20 09/08/20 09/09/20 23:59 23:59 23:59 Intake Total 1370 / 1370 1297.5 / 1297.5 Output Total 1440 / 1440 700 / 700 Balance -70 / -70 597.5 / 597.5 Laboratory Results 09/08/20 09:20: Urine Test Negative 09/09/20 05:35: WBC 11.9 H, RBC 3.43 L, Hgb 8.3 L, Hct 26.9 L, MCV 78.4 L, MCH 24.2 L, MCHC 30.9 L, RDW Std Deviation 54.4 H, RDW Coeff of Lanette 18.8 H, Plt Count 286, MPV 10.9 09/09/20 05:35: Creatinine 0.88, Estim Creat Clear Calc 77.96, Est GFR (MDRD) Af Amer 90, Est GFR (MDRD) Non-Af 74 Current Medications Acetaminophen (Acetaminophen 500 Mg Tablet) 1,000 mg PO Q8H PRN PRN PRN Reason: Pain Score 1-10 or Fever Docusate Sodium (Docusate Sodium 100 Mg Capsule) 100 mg PO BID PRN PRN PRN Reason: CONSTIPATION Hydrochlorothiazide (Hydrochlorothiazide 25 Mg Tablet) 25 mg PO DAILY PRN PRN PRN Reason: edema Hydromorphone HCl (Hydromorphone 0.5 Mg/0.5 Ml Syringe) 0.5 mg IV Q3H PRN PRN PRN Reason: Pain Score 4-10 Last Admin: 09/08/20 21:36 Dose: 0.5 mg Documented by: Influenza Virus Vaccine Quadrival (Influenza Vaccine (6mos+)/Pf 0.5 Ml Syringe) 0.5 ml IM .ONCE ONE Stop: 09/09/20 10:01 Ketorolac Tromethamine (Ketorolac 10 Mg Tablet) 10 mg PO Q6H [facility] Stop: 09/13/20 12:01 Loratadine (Loratadine 10 Mg Tablet) 10 mg PO DAILY [facility] Ondansetron HCl (Ondansetron 4 Mg/2 Ml Vial) 4 mg IV Q4H PRN PRN PRN Reason: NAUSEA Oxycodone HCl (Oxycodone 5 Mg Tablet) 5 mg PO Q4H PRN PRN PRN Reason: Pain Score 4-10 Last Admin: 09/09/20 06:08 Dose: 5 mg Documented by: Pantoprazole Sodium (Pantoprazole Sodium 40 Mg Tablet) 40 mg PO DAILY [facility] Potassium Chloride (Potassium Chloride 10 Meq Tablet) 10 meq PO DAILY [facility] Pseudoephedrine HCl (Pseudoephedrine 60 Mg Tablet) 60 mg PO 4X/DAY [facility] Last Admin: 09/08/20 21:45 Dose: 60 mg Documented by: Simethicone (Simethicone 80 Mg Tablet) 80 mg PO PCHS [facility] Last Admin: 09/08/20 21:53 Dose: 80 mg Documented by: Sodium Chloride (0.9% Saline Lock 10 Ml Syringe) 10 - 40 ml IV UD PRN PRN Reason: SALINE FLUSH Last Admin: 09/08/20 18:35 Dose: 10 ml Documented by: Medical Necessity - Tobacco Use Smoking Status: Former smoker Assessment/Plan All Active Problems (Last Reviewed 08/29/20 @ 19:36 by Isabel Salazar [employer], [employer]-C) Active internal bleeding (Acute) LLQ abdominal pain (Acute) Torticollis, acute (Acute) Neck pain on right side (Acute) Restless legs syndrome (Acute) Neuropathy involving both lower extremities (Acute) Edema of lower extremity (Acute) 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 Will release to home with routine instructions.
[2020-09-09 07:47] VITALS: BP 88/52; PULSE 72; RESP 18; TEMP 36.9; O2SAT 98
[2020-09-09 08:12] VITALS: O2SAT 98
[2020-09-09] MEDS: Pantoprazole Sodium 40 MG Tablet PO (09:05)
[2020-09-09] MEDS: Loratadine 10 MG Tablet PO (09:06)
[2020-09-09 09:30] VITALS: BP 94/60; PULSE 76
== END 2020-09-09 09:55 | disposition home or self-care (01) ==
LOC: SDC 07:55 → AC 09:33 → MS3 13:12
PROVIDERS: Anesthesiology; PCP Nurse Practitioner; Referring Provider Obstetrics & Gynecology; Visit Provider Obstetrics & Gynecology
PROC: 0UT90ZZ Resection of Uterus, Open Approach (ICD-10-PCS; CPT 58552; principal; 2020-09-08 09:40)
DX: N72 Inflammatory disease of cervix uteri (principal); N83.8 Other noninflammatory disorders of ovary, fallopian tube and broad ligament; N92.0 Excessive and frequent menstruation with regular cycle; D50.0 Iron deficiency anemia secondary to blood loss (chronic); Z79.1 Long term (current) use of non-steroidal anti-inflammatories (NSAID); Z79.899 Other long term (current) drug therapy; I10 Essential (primary) hypertension; N94.6 Dysmenorrhea, unspecified; Z87.891 Personal history of nicotine dependence; N85.2 Hypertrophy of uterus
CPT/HCPCS: 00840; 58552; S2900; 36415; 80051; 81025; 82565; 84703; 85027; 85610; 85730; 86850; 86900; 86901; 87426; 88307; 99251; C9803; J7120; 90686; A4216; G0463; J2405

== ENCOUNTER → 2021-02-16 | Outpatient (CLI) | payer BC, SELFPAY ==
[2021-02-16 14:58] VITALS: BMI 21.6
[2021-02-16 22:51] LABS: Absolute Lymphocyte Count 1.19 X10^3/uL (0.83-4.51); Absolute Neutrophil Count 2.5 X10^3/uL (2.0-7.7); Eosinophil# 0.41 X10^3/uL; Eosinophils% 8.9 % (0-5); Hematocrit 40.8 % (37-47); Hemoglobin 12.8 g/dL (12.0-15.0); Lymphocyte # 1.19 X10^3/ul (4.0); Lymphocyte % 25.8 % (19-41); Mean Corp Hgb Conc 31.4 g/dL (32-36); Mean Corpuscular Hgb 28.3 pg (27.0-32.0); Mean Corpuscular Volume 90.3 fL (81-99); Mean Platelet Vol. 11.5 fl (6.2-12.0); Monocyte# 0.51 X10^3/uL; Monocyte% 11.1 % (0-10); NRBC Flagged by Analyzer 0 % (0-5); Neutrophil # 2.49 X10^3/uL (2.7-7.7); Platelet Count 287 K/mm3 (150-450); RBC Distribution Width CV 18.2 % (11.6-14.6); RBC Distribution Width SD 60.5 fl (35.1-43.9); Red Blood Count 4.52 M/mm3 (4.2-5.4); White Blood Count 4.6 K/mm3 (4.4-11.0)
[2021-02-16 23:20] LABS: ALB/GLOB Ratio 1.3 RATIO (0.9-2.4); AST(SGOT) 22 U/L (15-37); Alanine Aminotransfer ALT/SGPT 33 U/L (13-56); Albumin, Serum 4.3 g/dL (3.2-5.0); Alkaline Phosphatase 86 U/L (45-117); Anion Gap 4 (5-15); BUN 16 mg/dL (7-18); BUN/Creat Ratio 20.1 RATIO (10-20); CRP, High Sensitivity Cardiac 0.37 mg/L; Chloride 104 mmol/L (98-107); EST Glomerular Filtration Rate 84 mL/min (>60); Est Glom Filt Rate - Afr Amer 102 mL/min (>60); Globulin 3.2 g/dL (2.2-4.2); Glucose 58 mg/dL (74-106); Magnesium 1.6 mg/dL (1.6-2.6); Phosphorus 3.5 mg/dL (2.5-4.9); Potassium 3.3 mmol/L (3.5-5.1); Protein, Total 7.5 g/dL (6.4-8.2); Rheumatoid Factor < 10.0 IU/mL (<15); Sodium Level 139 mmol/L (136-145); Thyroid Stim Hormone (TSH) 1.81 uIU/mL (0.358-3.74)
[2021-02-16 23:34] LABS: Vitamin B12 > 2000 pg/mL (211-911)
[2021-02-17 08:35] LABS: PTHIN 45.5 pg/mL (18.4-80.1)
[2021-02-18 20:16] LABS: ANTINUCLEAR ANTIBODIES DIRECT Negative (Negative)
== END | disposition home or self-care (01) ==
PROVIDERS: PCP Nurse Practitioner; Visit Provider Nurse Practitioner
DX: R42 Dizziness and giddiness (principal); R53.83 Other fatigue; R06.00 Dyspnea, unspecified; R60.9 Edema, unspecified; D51.9 Vitamin B12 deficiency anemia, unspecified; D64.9 Anemia, unspecified; E03.9 Hypothyroidism, unspecified
CPT/HCPCS: 80053; 82607; 83735; 83970; 84100; 84443; 85025; 86038; 86141; 86225; 86235; 86431

== ENCOUNTER → 2021-03-06 12:30 | Outpatient (CLI) | payer BC, SELFPAY ==
[2021-02-18 15:51] VITALS: BMI 21.6
[2021-03-06 12:30] VITALS: PULSE 71; PULSE 77; PULSE 83; PULSE 84; PULSE 85; O2SAT 93; O2SAT 97; O2SAT 98; O2SAT 99
--- NOTE | 2021-03-06 12:58 | CPS ---
During minute 5 pt took 2 rest periods due to increased S.O.B and feeling like her throat was swelling.
--- NOTE | 2021-03-06 13:29 | PCM.PSN.6M ---
PSN 6 Minute Walk Test 6 Minute Walk Test 6 Minute Walk Test: 6 Minute Walk Test PSN:6-Minute Walk Test Start: 03/06/21 12:53 Freq: Status: Active Protocol: RESP.6MINW Document 03/06/21 12:30 [facility] (Rec: 03/06/21 13:00 [facility] [id number]) 6 Minute Walk Test Date Performed 03/06/21 Time Performed 12:30 Height 5 ft 6 in Weight: 56.245 kg Weight in Pounds 124.[address]: Isabel Salazar HEAD MEN'S TENNIS COACH Assistive device used: None Pre-test Oxygen Delivery Method Room Air Pulse Ox (%) 98 Pulse Rate (60-100 beats/min) 77 Dyspnea Efraín Scale (0-10) 0 Exertion Efraín Scale (6-20) 6 1st minute Oxygen Delivery Method Room Air Pulse Ox (%) 98 Pulse Rate (60-100 beats/min) 84 2nd minute Oxygen Delivery Method Room Air Pulse Ox (%) 98 Pulse Rate (60-100 beats/min) 85 3rd minute Oxygen Delivery Method Room Air Pulse Ox (%) 98 Pulse Rate (60-100 beats/min) 83 4th minute Oxygen Delivery Method Room Air Pulse Ox (%) 93 Pulse Rate (60-100 beats/min) 84 5th minute Oxygen Delivery Method Room Air Pulse Ox (%) 99 Pulse Rate (60-100 beats/min) 84 Dyspnea Efraín Scale (0-10) 3 Number of Rests Taken 2 Reported Symptoms Increased Work of Breathing 6th minute Oxygen Delivery Method Room Air Pulse Ox (%) 97 Pulse Rate (60-100 beats/min) 77 Dyspnea Efraín Scale (0-10) 3 Exertion Efraín Scale (6-20) 11 Reported Symptoms Increased Work of Breathing Post-test Oxygen Delivery Method Room Air Pulse Ox (%) 99 Pulse Rate (60-100 beats/min) 71 Full Laps Walked 19 Partial Lap, Number of Tiles Walked 0 Total Distance Walked (ft) 1121 03/06/21 12:58 Cardiopulmonary Services by Julianne Cervantes During minute 5 pt took 2 rest periods due to increased S.O.B and feeling like her throat was swelling. Initialized on 03/06/21 12:58 - END OF NOTE
--- NOTE | 2021-03-06 14:08 | WT_ITS ---
PSN 6 Minute Walk Test 6 Minute Walk Test 6 Minute Walk Test: 6 Minute Walk Test PSN:6-Minute Walk Test Start: 03/06/21 12:53 Freq: Status: Active Protocol: RESP.6MINW Document 03/06/21 12:30 [facility] (Rec: 03/06/21 13:00 [facility] [id number]) 6 Minute Walk Test Date Performed 03/06/21 Time Performed 12:30 Height 5 ft 6 in Weight: 56.245 kg Weight in Pounds 124.[address]: Isabel Salazar [employer] LAW[employer]ER Assistive device used: None Pre-test Oxygen Delivery Method Room Air Pulse Ox (%) 98 Pulse Rate (60-100 beats/min) 77 Dyspnea Efraín Scale (0-10) 0 Exertion Efraín Scale (6-20) 6 1st minute Oxygen Delivery Method Room Air Pulse Ox (%) 98 Pulse Rate (60-100 beats/min) 84 2nd minute Oxygen Delivery Method Room Air Pulse Ox (%) 98 Pulse Rate (60-100 beats/min) 85 3rd minute Oxygen Delivery Method Room Air Pulse Ox (%) 98 Pulse Rate (60-100 beats/min) 83 4th minute Oxygen Delivery Method Room Air Pulse Ox (%) 93 Pulse Rate (60-100 beats/min) 84 5th minute Oxygen Delivery Method Room Air Pulse Ox (%) 99 Pulse Rate (60-100 beats/min) 84 Dyspnea Efraín Scale (0-10) 3 Number of Rests Taken 2 Reported Symptoms Increased Work of Breathing 6th minute Oxygen Delivery Method Room Air Pulse Ox (%) 97 Pulse Rate (60-100 beats/min) 77 Dyspnea Efraín Scale (0-10) 3 Exertion Efraín Scale (6-20) 11 Reported Symptoms Increased Work of Breathing Post-test Oxygen Delivery Method Room Air Pulse Ox (%) 99 Pulse Rate (60-100 beats/min) 71 Full Laps Walked 19 Partial Lap, Number of Tiles Walked 0 Total Distance Walked (ft) 1121 03/06/21 12:58 Cardiopulmonary Services by Julianne Cervantes During minute 5 pt took 2 rest periods due to increased S.O.B and feeling like her throat was swelling. Initialized on 03/06/21 12:58 - END OF NOTE Interpretation Interpretation: The patient was able to ambulate 1121 feet over the course of 6 minutes on room air with no assistive devices or breaks. The patient experienced no significant desaturation or tachycardia during testing Recommendations Recommendations: No supplemental oxygen is indicated at this time.
== END ==
PROVIDERS: PCP Nurse Practitioner; Referring Provider Nurse Practitioner; Visit Provider Nurse Practitioner
DX: R06.00 Dyspnea, unspecified (principal)
CPT/HCPCS: 94618

== ENCOUNTER → 2021-03-11 13:10 | Outpatient (CLI) | payer BC, SELFPAY ==
[2021-02-18 15:51] VITALS: BMI 21.6
--- NOTE | 2021-03-12 09:49 | PFTCOMP ---
INTRODUCTION: The patient is a 48-year-old female that presents for pulmonary function studies secondary to a diagnosis of dyspnea. Respiratory therapy reports good patient effort. Bronchodilators were used during testing. INTERPRETATION: Forced expiration spirometry demonstrates the presence of a moderate large airways obstructive ventilatory defect. There was a significant response to aerosolized bronchodilators noted. Spirograms are of suboptimal quality and terminate prior to 6 seconds, likely underestimating FVC. Body plethysmography was performed and revealed an elevated RV to 133% of predicted, indicative of underlying air trapping. Diffusing capacity by single breath CO is within normal limits. IMPRESSION: Fully reversible moderate large airways obstructive ventilatory defect with associated air trapping and preserved diffusing capacity.
== END ==
PROVIDERS: PCP Nurse Practitioner; Referring Provider Nurse Practitioner; Visit Provider Nurse Practitioner
DX: R06.00 Dyspnea, unspecified (principal)
CPT/HCPCS: 94060; 94726; 94729

== ENCOUNTER → 2021-07-31 | Outpatient (CLI) | payer BC, SELFPAY ==
[2021-07-31 23:24] LABS: ALB/GLOB Ratio 1.3 RATIO (0.9-2.4); AST(SGOT) 22 U/L (15-37); Alanine Aminotransfer ALT/SGPT 28 U/L (13-56); Albumin, Serum 4.3 g/dL (3.2-5.0); Alkaline Phosphatase 76 U/L (45-117); Anion Gap 7 (5-15); BUN 18 mg/dL (7-18); BUN/Creat Ratio 25.5 RATIO (10-20); Chloride 100 mmol/L (98-107); EST Glomerular Filtration Rate 96 mL/min (>60); Est Glom Filt Rate - Afr Amer 116 mL/min (>60); Globulin 3.3 g/dL (2.2-4.2); Glucose 97 mg/dL (74-106); Potassium 3.6 mmol/L (3.5-5.1); Protein, Total 7.6 g/dL (6.4-8.2); Sodium Level 136 mmol/L (136-145)
== END | disposition home or self-care (01) ==
PROVIDERS: PCP Nurse Practitioner; Referring Provider Nurse Practitioner; Visit Provider Nurse Practitioner
DX: E87.6 Hypokalemia (principal)
CPT/HCPCS: 80053

== ENCOUNTER 2021-11-24 21:50 | Outpatient (CLI) | payer BC, SELFPAY ==
[2021-11-24 22:08] LABS: Absolute Lymphocyte Count 1.61 X10^3/uL (0.83-4.51); Basophil# 0.02 X10^3/uL; Basophil% 0.2 % (0-1); Eosinophil# 0.78 X10^3/uL; Eosinophils% 9.5 % (0-5); Hematocrit 41.2 % (37-47); Hemoglobin 13.4 g/dL (12.0-15.0); Lymphocyte # 1.61 X10^3/ul (0.83-4.51); Lymphocyte % 19.7 % (19-41); Mean Corp Hgb Conc 32.5 g/dL (32-36); Mean Corpuscular Hgb 30.1 pg (27.0-32.0); Mean Corpuscular Volume 92.6 fL (81-99); Mean Platelet Vol. 11.3 fl (6.2-12.0); Monocyte# 0.75 X10^3/uL; Monocyte% 9.2 % (0-10); NRBC Flagged by Analyzer 0 % (0-5); Neutrophil # 4.99 X10^3/uL (2.7-7.7); Neutrophil % 61.2 % (47-70); Platelet Count 308 K/mm3 (150-450); RBC Distribution Width CV 12.8 % (11.6-14.6); RBC Distribution Width SD 43.8 fl (35.1-43.9); Red Blood Count 4.45 M/mm3 (4.2-5.4); White Blood Count 8.2 K/mm3 (4.4-11.0)
[2021-11-24 22:40] LABS: ALB/GLOB Ratio 1.4 RATIO (0.9-2.4); AST(SGOT) 14 U/L (15-37); Alanine Aminotransfer ALT/SGPT 27 U/L (13-56); Albumin, Serum 4.2 g/dL (3.2-5.0); Alkaline Phosphatase 52 U/L (45-117); Anion Gap 6 (5-15); BUN 16 mg/dL (7-18); Calcium,Total 9.4 mg/dL (8.5-10.1); Chloride 99 mmol/L (98-107); EST Glomerular Filtration Rate 98 mL/min (>60); Est Glom Filt Rate - Afr Amer 118 mL/min (>60); Globulin 3.1 g/dL (2.2-4.2); Glucose 92 mg/dL (74-106); Potassium 3.5 mmol/L (3.5-5.1); Protein, Total 7.3 g/dL (6.4-8.2); Sodium Level 137 mmol/L (136-145)
[2021-11-24 22:43] LABS: Hemoglobin A1c 5.1 % (3.8-5.6)
== END 2021-11-24 23:59 | disposition short-term general hospital (02) ==
PROVIDERS: PCP Nurse Practitioner; Visit Provider Nurse Practitioner
DX: D64.9 Anemia, unspecified (principal); G47.419 Narcolepsy without cataplexy; E16.2 Hypoglycemia, unspecified
CPT/HCPCS: 80053; 83036; 85025

== ENCOUNTER → 2022-07-05 | Outpatient (CLI) | payer BC, SELFPAY ==
[2022-07-05 23:04] LABS: Absolute Lymphocyte Count 1.58 X10^3/uL (0.83-4.51); Absolute Neutrophil Count 4.1 X10^3/uL (2.0-7.7); Eosinophil# 0.69 X10^3/uL; Eosinophils% 9.8 % (0-5); Hematocrit 37.9 % (37-47); Lymphocyte # 1.58 X10^3/ul (0.83-4.51); Lymphocyte % 22.4 % (19-41); Mean Corp Hgb Conc 34.3 g/dL (32-36); Mean Corpuscular Hgb 31.1 pg (27.0-32.0); Mean Corpuscular Volume 90.7 fL (81-99); Mean Platelet Vol. 10.9 fl (6.2-12.0); Monocyte# 0.69 X10^3/uL; Monocyte% 9.8 % (0-10); NRBC Flagged by Analyzer 0 % (0-5); Neutrophil # 4.08 X10^3/uL (2.7-7.7); Neutrophil % 57.7 % (47-70); Platelet Count 313 K/mm3 (150-450); RBC Distribution Width CV 12.8 % (11.6-14.6); RBC Distribution Width SD 42.5 fl (35.1-43.9); Red Blood Count 4.18 M/mm3 (4.2-5.4); White Blood Count 7.1 K/mm3 (4.4-11.0)
[2022-07-05 23:21] LABS: ALB/GLOB Ratio 1.5 RATIO (0.9-2.4); AST(SGOT) 18 U/L (15-37); Alanine Aminotransfer ALT/SGPT 29 U/L (13-56); Albumin, Serum 4.3 g/dL (3.2-5.0); Alkaline Phosphatase 73 U/L (45-117); Anion Gap 7 (5-15); BUN 21 mg/dL (7-18); BUN/Creat Ratio 28.5 RATIO (10-20); Chloride 101 mmol/L (98-107); Cholesterol 195 mg/dL (200); Creatinine, Serum 0.74 mg/dL (0.55-1.02); EST Glomerular Filtration Rate 91 mL/min (>60); Est Glom Filt Rate - Afr Amer 110 mL/min (>60); Globulin 2.9 g/dL (2.2-4.2); Glucose 92 mg/dL (74-106); High Density Lipoprotein 70 mg/dL; Potassium 2.9 mmol/L (3.5-5.1); Protein, Total 7.2 g/dL (6.4-8.2); Sodium Level 138 mmol/L (136-145); Triglycerides 91 mg/dL; Very Low Density Lipoprotein 18 mg/dL (5-40)
== END | disposition home or self-care (01) ==
PROVIDERS: PCP Nurse Practitioner; Visit Provider Nurse Practitioner
DX: M79.89 Other specified soft tissue disorders (principal); E87.6 Hypokalemia; D64.9 Anemia, unspecified
CPT/HCPCS: 80053; 80061; 85025

== ENCOUNTER → 2022-12-22 | Outpatient (CLI) | payer BC, SELFPAY ==
[2022-12-22 22:22] LABS: ALB/GLOB Ratio 1.1 RATIO (0.9-2.4); AST(SGOT) 16 U/L (15-37); Alanine Aminotransfer ALT/SGPT 28 U/L (13-56); Alkaline Phosphatase 111 U/L (45-117); Anion Gap 8 (5-15); BUN 18 mg/dL (7-18); BUN/Creat Ratio 24.6 RATIO (10-20); Calcium,Total 9.1 mg/dL (8.5-10.1); Chloride 100 mmol/L (98-107); Creatinine, Serum 0.73 mg/dL (0.55-1.02); EST Glomerular Filtration Rate 91 mL/min (>60); Est Glom Filt Rate - Afr Amer 111 mL/min (>60); Globulin 3.5 g/dL (2.2-4.2); Glucose 66 mg/dL (74-106); Potassium 3.4 mmol/L (3.5-5.1); Protein, Total 7.5 g/dL (6.4-8.2); Sodium Level 139 mmol/L (136-145)
== END | disposition home or self-care (01) ==
PROVIDERS: PCP Nurse Practitioner; Visit Provider Nurse Practitioner
DX: E87.6 Hypokalemia (principal)
CPT/HCPCS: 80053

== ENCOUNTER 2023-06-08 21:58 | Outpatient (CLI) | payer SELFPAY ==
[2023-06-08 22:12] LABS: Absolute Neutrophil Count 6.8 X10^3/uL (2.0-7.7); Basophil# 0.01 X10^3/uL; Basophil% 0.1 % (0-1); Eosinophil# 0.41 X10^3/uL; Hematocrit 40.8 % (37-47); Hemoglobin 13.3 g/dL (12.0-15.0); Lymphocyte % 21.4 % (19-41); Mean Corp Hgb Conc 32.6 g/dL (32-36); Mean Corpuscular Volume 92.1 fL (81-99); Mean Platelet Vol. 11.5 fl (6.2-12.0); Monocyte# 0.82 X10^3/uL; NRBC Flagged by Analyzer 0 % (0-5); Neutrophil # 6.79 X10^3/uL (2.7-7.7); Neutrophil % 66.2 % (47-70); Platelet Count 296 K/mm3 (150-450); RBC Distribution Width CV 13.4 % (11.6-14.6); RBC Distribution Width SD 45.7 fl (35.1-43.9); Red Blood Count 4.43 M/mm3 (4.2-5.4); White Blood Count 10.3 K/mm3 (4.4-11.0)
[2023-06-08 22:31] LABS: ALB/GLOB Ratio 1.2 RATIO (0.9-2.4); AST(SGOT) 20 U/L (15-37); Alanine Aminotransfer ALT/SGPT 29 U/L (13-56); Alkaline Phosphatase 80 U/L (45-117); Anion Gap 7 (5-15); BUN 28 mg/dL (7-18); BUN/Creat Ratio 44.5 RATIO (10-20); Calcium,Total 8.8 mg/dL (8.5-10.1); Chloride 105 mmol/L (98-107); Cholesterol 251 mg/dL (200); Creatinine, Serum 0.63 mg/dL (0.55-1.02); EST Glomerular Filtration Rate 109 mL/min (>60); Est Glom Filt Rate - Afr Amer 132 mL/min (>60); Globulin 3.4 g/dL (2.2-4.2); Glucose 91 mg/dL (74-106); High Density Lipoprotein 92 mg/dL; Potassium 3.4 mmol/L (3.5-5.1); Protein, Total 7.4 g/dL (6.4-8.2); Sodium Level 139 mmol/L (136-145); Thyroid Stim Hormone (TSH) 2.36 uIU/mL (0.358-3.74); Triglycerides 92 mg/dL; Very Low Density Lipoprotein 18 mg/dL (5-40)
== END 2023-06-08 23:59 | disposition home or self-care (01) ==
PROVIDERS: PCP Nurse Practitioner; Visit Provider Nurse Practitioner
DX: R30.0 Dysuria (principal); G89.29 Other chronic pain; M54.50 Low back pain, unspecified; G47.411 Narcolepsy with cataplexy; E16.2 Hypoglycemia, unspecified; D64.9 Anemia, unspecified; E87.6 Hypokalemia
CPT/HCPCS: 80053; 80061; 84443; 85025; 87086

== ENCOUNTER → 2025-05-15 | Outpatient (CLI) | payer BC, SELFPAY ==
[2025-05-15 22:20] LABS: Hematocrit 39.8 % (37-47); Hemoglobin 13.1 g/dL (12.0-15.0); Immature Granulocytes Count 0.020 X10^3/uL (0.0-0.0); Mean Corp Hgb Conc 32.9 g/dL (32-36); Mean Corpuscular Volume 87.1 fL (81-99); Mean Platelet Vol. 11.7 fl (6.2-12.0); NRBC Flagged by Analyzer 0 % (0-5); Platelet Count 322 K/mm3 (150-450); RBC Distribution Width CV 12.4 % (11.6-14.6); RBC Distribution Width SD 39.4 fl (35.1-43.9); Red Blood Count 4.57 M/mm3 (4.2-5.4); White Blood Count 6.7 K/mm3 (4.4-11.0)
[2025-05-15 23:28] LABS: AST(SGOT) 21 U/L (<=31); Alanine Aminotransfer ALT/SGPT 21 U/L (<=34); Albumin, Serum 4.1 g/dL (3.5-5.0); Alkaline Phosphatase 111 U/L (35-104); Anion Gap 13 (5-15); BUN 7 mg/dL (4-19); BUN/Creat Ratio 11.3 RATIO (10-20); Calcium,Total 9.7 mg/dL (7.6-11.0); Carbon Dioxide 26.2 mmol/L (21.0-32.0); Chloride 101 mmol/L (98-108); Cholesterol 152 mg/dL (<=200); Globulin 2.6 g/dL (2.2-4.2); Glucose 64 mg/dL (70-99); Low Density Lipoprotein Calc. 55 mg/dL; Potassium 3.6 mmol/L (3.3-5.1); Triglycerides 240 mg/dL; Very Low Density Lipoprotein 48 mg/dL (5-40); cholesterol:hdl ratio screen 3.12
== END | disposition home or self-care (01) ==
PROVIDERS: PCP Nurse Practitioner; Referring Provider Nurse Practitioner; Visit Provider Nurse Practitioner
DX: G47.411 Narcolepsy with cataplexy (principal); D50.8 Other iron deficiency anemias; E87.6 Hypokalemia; R42 Dizziness and giddiness; E78.5 Hyperlipidemia, unspecified
CPT/HCPCS: 80053; 80061; 85025